=== PATIENT | female | born 1990 | race Caucasian/White ===

== ENCOUNTER → 2020-11-08 | Day surgery (SDC) | payer OTHER ==
[~2020-11-08] MED LIST: AMOXICILLIN500 MG PO; MOTRIN600 MG PO; PROGESTERONE200 MG PO
[2020-11-08 07:40] LABS: HCG (URINE) SCREEN NEGATIVE (NEGATIVE)
[2020-11-08 07:54] LABS: BASOPHIL 0.3 % (0-2); EOSINOPHIL 1.9 % (0-5); HGB 13.1 g/dl (12.5-16.0); LYMPHOCYTE 23.2 % (15-48); MCH 31.7 pg (25.0-31.0); MCHC 33.6 g/dL (32.0-36.0); MCV 94.4 fL (78.0-100.0); MONOCYTE 7.1 % (0-12); MPV 8.9 fL (6.0-9.5); NEUTROPHIL 67.2 % (41-80); NRBC 0; PLT 313 K/uL (150-400); RBC 4.13 M/uL (4.20-5.40); RDW 12.9 % (11.5-14.0); WBC 8.9 K/uL (4.0-10.5)
== END | disposition home or self-care (01) ==
LOC: FAS 07:00
PROVIDERS: Oral & Maxillofacial Surgery
DX: K02.63 Dental caries on smooth surface penetrating into pulp (principal); K01.1 Impacted teeth; K04.7 Periapical abscess without sinus; D64.9 Anemia, unspecified; M41.9 Scoliosis, unspecified; E28.2 Polycystic ovarian syndrome; J45.909 Unspecified asthma, uncomplicated; F17.210 Nicotine dependence, cigarettes, uncomplicated
CPT/HCPCS: 36415; 84703; 85025; 93005; J1100; J1170; J2250; J2704; J2710; J2795; J3010; J7120